=== PATIENT | female | born 1990 | race Caucasian/White ===

== ENCOUNTER 2018-05-20 08:04 | Emergency (ER) | payer SELFPAY ==
[2018-05-20 08:34] LABS: #Eosinphils 0.2 thou/uL (0.0-0.7); #Lymphocytes 2.5 thou/uL (1.20-3.40); #Monocytes 0.5 thou/uL (0.11-0.59); #Neutrophils 4.8 thou/uL (1.40-6.50); %Basophils 0.6 % (0.0-1.0); %Eosinophils 2.2 % (0.0-10.0); %Lymphocytes 31.2 % (21.0-51.0); %Monocytes 5.8 % (0.0-10.0); %Neutrophils 60.2 % (42.0-75.0); Hemoglobin 13.9 g/dL (12.0-16.0); Mean Corpuscular HGB CONC 34.6 g/dL (32.0-36.0); Mean Corpuscular Hemoglobin 31.4 pg (27.0-31.0); Mean Corpuscular Volume 90.8 fL (78.0-98.0); Mean Platelet Volume 8.8 fL (7.4-10.4); Platelet Count 202 thou/uL (130-400); RBC Distribution Width 11.8 % (11.5-14.5); Red Blood Cell (RBC) Count 4.42 mill/uL (4.20-5.40)
[2018-05-20 08:36] LABS: Bilirubin Negative (Negative); Blood, Urine Small (Negative); Clarity TURBID (Clear); Glucose, Urine (Dipstick) Negative (Negative); Leukocyte Large (Negative); Nitrite Positive (Negative); Protein, Urine (Dipstick) 30 mg/dL (Neg-Trace); Specific Gravity, Urine 1.023 (1.002-1.036); Urobilinogen 0.2 mg/dL (0.2-1.0)
[2018-05-20 08:37] LABS: Bacteria/HPF 4+ HPF (None Seen); Hyaline Casts/LPF 4-6 HYALINE CAST LPF (0-3 Hyaline); Pathc Cast-AUWi Flag 2.03 (0-2.49); Squamous Epithelial 21-50 HPF (0-3)
[2018-05-20 08:45] LABS: Pregnancy Test - Urine (BHCG) Negative (Negative); Pregu Control Background? CLEAR/WHITE (CLR/WHITE); Pregu Control Bar Appear? YES (CONTROL BAR); Specific Gravity 1.023 (1.002-1.036)
[2018-05-20 08:58] LABS: ALT (SGPT) 53 U/L (8-55); AST (SGOT) 30 U/L (5-34); Albumin 3.8 g/dL (3.5-5.0); Alkaline Phosphatase 82 U/L (40-150); Anion Gap 12 mmol/L (10-20); BUN (Urea Nitrogen) 8 mg/dL (7.0-18.7); Bilirubin, Total 0.4 mg/dL (0.2-1.2); Calc. Creatinine Clearance 0 mL/min (70-130); Calcium 9.1 mg/dL (7.8-10.44); Carbon Dioxide 25 mmol/L (22-29); Chloride 106 mmol/L (98-107); Estimated GFR-MDRD 79; Globulin 3.4 g/dL (2.4-3.5); Glucose 119 mg/dL (70-105); Lipase 40 U/L (8-78); Potassium 3.6 mmol/L (3.5-5.1); Protein, Total 7.2 g/dL (6.0-8.3); Sodium 139 mmol/L (136-145)
[2018-05-20] MEDS ORDERED: Ondansetron HCl/PF 4 MG/2 ML Vial ONE (09:19)
[2018-05-20] MEDS ORDERED: cefTRIAXone\\ROCEPHIN 2 GM VIAL ONE (09:19)
[2018-05-20] MEDS ORDERED: Sodium Chloride 0.9% 100 ML ONE (09:19)
--- NOTE | 2018-05-20 10:39 | CT ---
CT OF THE ABDOMEN AND PELVIS WITH IV CONTRAST: Date: 05/20/18 INDICATION: History of abdominal pain and vomiting. COMPARISON: Prior CT of the abdomen and pelvis dated 04/07/15. FINDINGS: The lung bases are clear. There is diffuse fatty infiltration of the liver. Gallbladder is surgically absent. The pancreas, adrenal glands, and spleen appear within normal limit s. There is a 2.9 cm cyst involving the mid to superior pole of the left kidney, which is stable. The re is a tiny, 1-2 mm, nonobstructing calculus within the inferior pole of the right kidney. No hydron ephrosis is evident. There is a displaced cholecystectomy clip seen within the right mid abdomen. There is a surgical clip within the right lower quadrant of the abdomen adjacent to the right aspect of the uterus which is nonspecific. There is wall thickening involving a partially decompressed bladder. The visualized unopacified large and small bowel appear within normal limits. The appendix is not definitely seen. There is suture li ne seen within the cecal apex likely related to prior appendectomy. No definite acute osseous abnormality is evident. IMPRESSION: 1. Some mild wall thickening involving the bladder may reflect a cystitis or artefactual thickening of the bladder from poor distenstion. 2. Right nephrolithiasis. 3. Stable left renal cyst. 4. Fatty liver. 5. Cholecystectomy. POS: [facility]
[2018-05-20] MEDS ORDERED: ISOVUE-370 76%-LOCM 1 ML ONE (14:40)
== END 2018-05-20 11:18 | disposition home or self-care (01) ==
LOC: ERS 08:04
DX: N39.0 Urinary tract infection, site not specified (principal); F17.210 Nicotine dependence, cigarettes, uncomplicated; Z71.6 Tobacco abuse counseling
CPT/HCPCS: 36415; 74177; 80053; 81003; 81015; 81025; 83690; 85025; 96361; 96365; 96375; 99406; J0696; J2405; J7050

== ENCOUNTER 2019-04-16 01:26 | Emergency (ER) | payer SELFPAY ==
[2019-04-16] MEDS ORDERED: Acetaminophen 500 MG TAB ONE (06:02)
--- NOTE | 2019-04-16 08:51 | RAD ---
aTHREE VIEWS RIGHT HAND: COMPARISON: 07/26/2016. HISTORY: Smashed her hand in a freezer door tonight with right hand pain. FINDINGS: Three views right hand show no evidence of acute fracture or dislocation. There is remodeling of the 5th metacarpal secondary to a remote healed fracture. No degenerative changes are seen. IMPRESSION: No evidence of acute osseous abnormality. POS: [facility]
== END 2019-04-16 07:13 | disposition home or self-care (01) ==
LOC: ERS 01:26
DX: S62.336A Displaced fracture of neck of fifth metacarpal bone, right hand, initial encounter for closed fracture (principal); F32.9 Major depressive disorder, single episode, unspecified; F41.9 Anxiety disorder, unspecified; F17.210 Nicotine dependence, cigarettes, uncomplicated; W23.0XXA Caught, crushed, jammed, or pinched between moving objects, initial encounter
CPT/HCPCS: 26600

== ENCOUNTER 2019-10-03 10:32 | Emergency (ER) | payer SELFPAY ==
--- NOTE | 2019-10-03 11:22 | RAD ---
XR Chest Pa Lat STANDARD HISTORY: Cough COMPARISON: 05/20/2012 FINDINGS: The heart size is normal. The lungs are well expanded without focal areas of consolidation, pneumothorax or pleural effusions. IMPRESSION: No radiographic evidence of acute cardiopulmonary process.
== END 2019-10-03 12:38 | disposition home or self-care (01) ==
LOC: ERS 10:32
DX: J10.1 Influenza due to other identified influenza virus with other respiratory manifestations (principal); F41.9 Anxiety disorder, unspecified; F32.9 Major depressive disorder, single episode, unspecified; F17.210 Nicotine dependence, cigarettes, uncomplicated
CPT/HCPCS: 71046; 87804; 94640; J7620

== ENCOUNTER 2021-03-20 13:15 | Emergency (ER) | payer SELFPAY | END 2021-03-20 15:14 | disposition home or self-care (01) | LOC: ERS 13:15 | DX: S90.121A Contusion of right lesser toe(s) without damage to nail, initial encounter (principal); F17.210 Nicotine dependence, cigarettes, uncomplicated; W22.8XXA Striking against or struck by other objects, initial encounter; Y92.009 Unspecified place in unspecified non-institutional (private) residence as the place of occurrence of the external cause ==

== ENCOUNTER 2021-08-06 09:17 | Emergency (ER) | payer BC ==
[2021-08-06] MEDS ORDERED: Lidocaine 1% (PF) 30 ML VIAL ONE (10:46)
[2021-08-06] MEDS ORDERED: Boostrix 0.5 ML (Tdap) VIAL ONE (10:47)
== END 2021-08-06 11:47 | disposition home or self-care (01) ==
LOC: ERS 09:17
DX: L02.211 Cutaneous abscess of abdominal wall (principal); F17.210 Nicotine dependence, cigarettes, uncomplicated; Z23 Encounter for immunization
CPT/HCPCS: 10060; 90471; 90715; J2001